=== PATIENT | male | born 1945 | race Caucasian/White ===

== ENCOUNTER 2020-11-29 16:28 | Inpatient (IN) | payer MEDICARE, OTHER ==
[~2020-11-29] VITALS: Ht 180.3 cm; Wt 75.0 kg
--- NOTE | 2020-11-29 16:34 | NUR ---
CALLED FOR TRIAGE, NO ANSWER
--- NOTE | 2020-11-29 16:48 | NUR ---
CALLED FOR TRIAGE, STILL IN BR
--- NOTE | 2020-11-29 17:19 | NUR ---
[employer] AUTOMOBILES: PT TO ROOM FROM LOBBY
[2020-11-29 18:03] LABS: BASOPHILS % (AUTO) 0 % (0-1); EOSINOPHILS % (AUTO) 0 % (1-7); LYMPHOCYTES % (AUTO) 12 % (22-44); MEAN CORPUSCULAR HEMOGLOBIN 30.6 pg (27.5-34.5); MEAN CORPUSCULAR HGB CONC 33.7 g/dL (33.2-36.2); MEAN PLATELET VOLUME 8.7 fL (7.4-10.4); MONOCYTES % (AUTO) 10 % (2-9); NEUTROPHILS % (AUTO) 78 % (42-75); PLATELET COUNT 136 x10^3/uL (130-400); RED BLOOD COUNT 4.52 x10^6/uL (4.38-5.82); RED CELL DISTRIBUTION WIDTH 13.6 % (9.4-14.8)
[2020-11-29 18:12] LABS: ALANINE AMINOTRANSFERASE 12 U/L (12-78); ANION GAP 13 mmol/L (5-15); CALCIUM 9.2 mg/dL (8.5-10.1); CHLORIDE 101 mmol/L (98-107)
[2020-11-29 18:16] LABS: ALKALINE PHOSPHATASE 122 U/L (45-117); BILIRUBIN,TOTAL 1.1 mg/dL (0.2-1.0); TOTAL PROTEIN 7.5 g/dL (6.4-8.2); TROPONIN I 0.031 ng/mL (0.000-0.045)
--- NOTE | 2020-11-29 19:02 | NUR ---
BEDSIDE REPORT RECEIVED FROM IVETTE WALTON
--- NOTE | 2020-11-29 19:05 | NUR ---
PT UPRIGHT ON LATISHA ALFONSO, VSS. PT REPORTS NAUSEA, ERP AWARE, WILL MEDICATE PER EMAR. PT DENIES ANY NEEDS AT THIS TIME. FAMILY REMAINS AT BEDSIDE. CALL [facility] WITHIN REACH.
[2020-11-29] MEDS ORDERED: ONDANSETRON ODT 4 MG ONE (19:32)
[2020-11-29] MEDS ORDERED: ONDANSETRON ODT 4 MG PO ONE (20:00)
--- NOTE | 2020-11-29 20:33 | NUR ---
PT RESTING COMFORTABLY ON BED SLEEPING. PT O2 NOTED TO BE 88% ON ROOM AIR, PLACED ON 2L O2 VIA NASAL CANNULA, O2 IMPROVED TO 97%. NO ADDITIONAL NEEDS AT THIS TIME. CALL [facility] WITHIN REACH. PT REPORTS RELIEF OF NAUSEA AT THIS TIME.
[2020-11-29] MEDS ORDERED: HEPARIN 5,000 UNITS/ML, 1ML IV ONE (21:00)
--- NOTE | 2020-11-29 21:15 | NUR ---
CEDE[facility]O INSERTION PER ERP ORDER. PT TOLERATED WELL. RN IVETTE AT BEDSIDE FOR ASSISTANCE. SEE CEDE[facility]O DOCUMENTATION FOR DETAIL. PT DENIES ANY ADDITIONAL NEEDS AT THIS TIME. CALL [facility] WITHIN REACH.
[2020-11-29] MEDS ORDERED: HEPARIN 5,000 UNITS/ML, 1ML ONE (21:24)
[2020-11-29] MEDS ORDERED: HEPARIN 25,000 UNITS/250ML PMX 250 ML ONE (21:24)
[2020-11-29] MEDS ORDERED: ONDANSETRON 2MG/ML, 2ML IVPush PRN (21:30)
[2020-11-29] MEDS ORDERED: POLYETHYLENE GLYCOL 17 GM PACKET PO PRN (21:30)
[2020-11-29] MEDS ORDERED: MELATONIN 5 MG TABLET PO PRN (21:30)
[2020-11-29] MEDS ORDERED: ACETAMINOPHEN 325 MG TABLET PO PRN (21:30)
[2020-11-29] MEDS ORDERED: LABETALOL 5MG/ML, 20ML IVPush PRN (21:30)
[2020-11-29] MEDS: HEPARIN 25,000 UNITS/250ML PMX 250 ML IV PRN (21:41)
[2020-11-29 22:03] LABS: MICROSCOPIC AUTO
--- NOTE | 2020-11-29 23:05 | NUR ---
Pt to be admitted to [facility], room 490-2. Report called to MARYSE WALTON.
[2020-11-29 23:30] VITALS: BP 160/80
[2020-11-30] MEDS: SODIUM BICARBONATE 8.4% 75 MEQ in SODIUM CHLORIDE 0.45% 1,000 ML IV SCH ×2 (00:01→16:21)
[2020-11-30 00:34] VITALS: BP 153/76
[2020-11-30 03:29] LABS: BASOPHILS % (AUTO) 0 % (0-1); EOSINOPHILS % (AUTO) 0 % (1-7); LYMPHOCYTES % (AUTO) 8 % (22-44); MEAN CORPUSCULAR HEMOGLOBIN 30.5 pg (27.5-34.5); MEAN CORPUSCULAR HGB CONC 33.4 g/dL (33.2-36.2); MEAN PLATELET VOLUME 8.8 fL (7.4-10.4); MONOCYTES % (AUTO) 9 % (2-9); NEUTROPHILS % (AUTO) 82 % (42-75); PLATELET COUNT 117 x10^3/uL (130-400); RED BLOOD COUNT 4.15 x10^6/uL (4.38-5.82); RED CELL DISTRIBUTION WIDTH 13.5 % (9.4-14.8)
[2020-11-30 03:41] LABS: ANION GAP 12 mmol/L (5-15); CALCIUM 8.6 mg/dL (8.5-10.1); CHLORIDE 103 mmol/L (98-107)
[2020-11-30 08:00] VITALS: BP 131/73
[2020-11-30] MEDS ORDERED: FENTANYL PF 100 MCG/2ML ONE (10:29)
[2020-11-30] MEDS ORDERED: NALOXONE 1 MG/ML, 2ML ONE (10:30)
[2020-11-30] MEDS ORDERED: FLUMAZENIL 0.1 MG/1 ML, 5ML ONE (10:30)
[2020-11-30] MEDS ORDERED: LIDOCAINE 1%, 20ML ONE (10:30)
[2020-11-30] MEDS ORDERED: MIDAZOLAM 1 MG/ML, 5ML ONE (10:30)
[2020-11-30 12:13] VITALS: BP 132/74
[2020-11-30] MEDS: HEPARIN 5,000 UNITS/ML, 1ML IV PRN (18:42)
[2020-11-30 19:34] VITALS: BP 144/76
[2020-12-01 01:03] VITALS: BP 143/80
[2020-12-01] MEDS: HEPARIN 25,000 UNITS/250ML PMX 250 ML IV PRN (02:16)
[2020-12-01 05:00] LABS: BASOPHILS % (AUTO) 0 % (0-1); EOSINOPHILS % (AUTO) 1 % (1-7); LYMPHOCYTES % (AUTO) 20 % (22-44); MEAN CORPUSCULAR HEMOGLOBIN 30.9 pg (27.5-34.5); MEAN CORPUSCULAR HGB CONC 33.8 g/dL (33.2-36.2); MEAN PLATELET VOLUME 8.7 fL (7.4-10.4); MONOCYTES % (AUTO) 14 % (2-9); NEUTROPHILS % (AUTO) 65 % (42-75); PLATELET COUNT 147 x10^3/uL (130-400); RED CELL DISTRIBUTION WIDTH 13.5 % (9.4-14.8)
[2020-12-01 05:09] LABS: ANION GAP 10 mmol/L (5-15); CALCIUM 9.1 mg/dL (8.5-10.1); CHLORIDE 106 mmol/L (98-107)
[2020-12-01 05:32] LABS: CREATININE 4.91 mg/dL (0.7-1.3)
[2020-12-01 06:38] VITALS: BP 132/82
[2020-12-01] MEDS: SODIUM BICARBONATE 8.4% 75 MEQ in SODIUM CHLORIDE 0.45% 1,000 ML IV SCH (08:06)
[2020-12-01] MEDS: HYDROmorphone 2 MG/ML, 1ML IVPush PRN ×2 (11:04→21:59)
[2020-12-01] MEDS: LACTATED RINGERS 1,000 ML IV SCH ×2 (12:45→22:00)
[2020-12-01 14:06] VITALS: BP 130/75
[2020-12-01 20:24] VITALS: BP 154/83
[2020-12-02 01:13] VITALS: BP 151/89
[2020-12-02] MEDS: HEPARIN 25,000 UNITS/250ML PMX 250 ML IV PRN (02:40)
[2020-12-02 07:42] LABS: CHLORIDE 106 mmol/L (98-107)
[2020-12-02 07:46] LABS: ANION GAP 6 mmol/L (5-15); CALCIUM 8.9 mg/dL (8.5-10.1)
[2020-12-02 07:58] LABS: BASOPHILS % (AUTO) 1 % (0-1); EOSINOPHILS % (AUTO) 1 % (1-7); LYMPHOCYTES % (AUTO) 19 % (22-44); MEAN CORPUSCULAR HEMOGLOBIN 30.3 pg (27.5-34.5); MEAN CORPUSCULAR HGB CONC 33.2 g/dL (33.2-36.2); MEAN PLATELET VOLUME 8.4 fL (7.4-10.4); MONOCYTES % (AUTO) 13 % (2-9); NEUTROPHILS % (AUTO) 67 % (42-75); PLATELET COUNT 166 x10^3/uL (130-400); RED BLOOD COUNT 3.93 x10^6/uL (4.38-5.82); RED CELL DISTRIBUTION WIDTH 13.6 % (9.4-14.8)
[2020-12-02 08:07] VITALS: BP 135/79
[2020-12-02] MEDS: HYDROmorphone 2 MG/ML, 1ML IVPush PRN ×2 (09:48→14:59)
[2020-12-02] MEDS: LACTATED RINGERS 1,000 ML IV SCH ×2 (09:50→21:44)
[2020-12-02 14:40] VITALS: BP 137/75
[2020-12-02] MEDS ORDERED: MIDAZOLAM 1 MG/ML, 5ML ONE (16:18)
[2020-12-02] MEDS ORDERED: NALOXONE 1 MG/ML, 2ML ONE (16:18)
[2020-12-02] MEDS ORDERED: FLUMAZENIL 0.1 MG/1 ML, 5ML ONE (16:18)
[2020-12-02] MEDS ORDERED: FENTANYL PF 100 MCG/2ML ONE (16:18)
[2020-12-02] MEDS ORDERED: VISIPAQUE 270 MG/ML, 50ML BOTTLE ONE (17:01)
[2020-12-02] MEDS ORDERED: hydrALAzine 20 MG/ML, 1ML ONE (17:54)
[2020-12-02] MEDS ORDERED: hydrALAzine 20 MG/ML, 1ML IV PRN (18:00)
[2020-12-02 18:23] VITALS: BP 177/93
[2020-12-02] MEDS: HEPARIN 5,000 UNITS/ML, 1ML IV PRN (19:06)
[2020-12-02 19:44] VITALS: BP 162/70
[2020-12-03 01:20] VITALS: BP 148/90
[2020-12-03 06:21] LABS: BASOPHILS % (AUTO) 0 % (0-1); EOSINOPHILS % (AUTO) 1 % (1-7); LYMPHOCYTES % (AUTO) 15 % (22-44); MEAN CORPUSCULAR HEMOGLOBIN 30.5 pg (27.5-34.5); MEAN CORPUSCULAR HGB CONC 33.4 g/dL (33.2-36.2); MONOCYTES % (AUTO) 11 % (2-9); NEUTROPHILS % (AUTO) 74 % (42-75); PLATELET COUNT 174 x10^3/uL (130-400); RED BLOOD COUNT 3.97 x10^6/uL (4.38-5.82); RED CELL DISTRIBUTION WIDTH 13.6 % (9.4-14.8)
[2020-12-03 06:28] LABS: ANION GAP 7 mmol/L (5-15); CALCIUM 9.1 mg/dL (8.5-10.1); CHLORIDE 106 mmol/L (98-107)
[2020-12-03 06:31] LABS: CREATININE 0.82 mg/dL (0.7-1.3)
[2020-12-03] MEDS: LACTATED RINGERS 1,000 ML IV SCH (07:50)
[2020-12-03] MEDS: HYDROmorphone 2 MG/ML, 1ML IVPush PRN (08:08)
[2020-12-03 09:50] VITALS: BP 147/81
[2020-12-03] MEDS: HEPARIN 25,000 UNITS/250ML PMX 250 ML IV PRN (10:45)
[2020-12-03] MEDS ORDERED: APIXABAN 5 MG TABLET ONE (11:55)
[2020-12-03] MEDS ORDERED: APIXABAN 5 MG TABLET PO SCH (12:00)
[2020-12-03] MEDS ORDERED: SENN1TAB94 PO (12:00)
[2020-12-03] MEDS ORDERED: APIX5TAB PO (12:00)
[2020-12-03] MEDS ORDERED: OXYC5TAB98 PO (12:00)
[2020-12-03 14:00] VITALS: BP 155/80
[2020-12-10] MEDS ORDERED: APIXABAN 5 MG TABLET PO SCH (09:00)
== END 2020-12-03 18:23 | disposition home or self-care (01) | DRG 694 ==
LOC: ED 18:29 → EDIP 20:39 → 4EST 23:30
PROVIDERS: ADMIT Internal Medicine; ATTEND Internal Medicine
PROC: 0T9330Z Drainage of Right Kidney Pelvis with Drainage Device, Percutaneous Approach (ICD-10-PCS; principal; 2020-11-30)
PROC: 0T9430Z Drainage of Left Kidney Pelvis with Drainage Device, Percutaneous Approach (ICD-10-PCS; 2020-11-30)
PROC: 0T783DZ Dilation of Bilateral Ureters with Intraluminal Device, Percutaneous Approach (ICD-10-PCS; 2020-12-03)
PROC: BT131ZZ Fluoroscopy of Bilateral Kidneys using Low Osmolar Contrast (ICD-10-PCS; 2020-12-03)
PROC: 0TPBX0Z Removal of Drainage Device from Bladder, External Approach (ICD-10-PCS; 2020-12-03)
DX: N13.1 Hydronephrosis with ureteral stricture, not elsewhere classified (principal); I82.422 Acute embolism and thrombosis of left iliac vein; E87.2 Acidosis; I82.432 Acute embolism and thrombosis of left popliteal vein; I82.412 Acute embolism and thrombosis of left femoral vein; E87.1 Hypo-osmolality and hyponatremia; N17.0 Acute kidney failure with tubular necrosis; C67.9 Malignant neoplasm of bladder, unspecified; F17.210 Nicotine dependence, cigarettes, uncomplicated; F19.10 Other psychoactive substance abuse, uncomplicated
CPT/HCPCS: 36415; 50432; 50434; 71045; 74176; 76942; 80048; 80053; 81001; 82570; 83735; 83880; 84100; 84156; 84300; 84484; 85025; 85520; 87086; 93005; 93306; 96374; 99156; 99157; C1894; G0378; J1170; J1644; J2250; J2405; J3010; Q0162; Q9966; C1729; C1751; C1769; C2625; J0360; J2310; J7120